=== PATIENT | male | born 1980 | race Caucasian/White ===

== ENCOUNTER → 2022-01-06 | Day surgery (SDC) | payer OTHER ==
[2022-01-02 12:21] VITALS: BMI 23.5
[~2022-01-06] MED LIST: CLINDAMYCIN 900 MG in DEXTROSE 5% IN WATER 50 ML IVPB PRN; GABAPENTIN 100 MG CAP PO STA; MIDAZOLAM 2 MG/2 ML VIAL IVP ONE; SODIUM CHLORIDE 0.9% 1,000 ML IV SCH; fentaNYL (PF) 50 MCG/ML 2 ML AMP ONE
[2022-01-06 13:55] VITALS: RESP 16; TEMP 98.3
--- NOTE | 2022-01-06 14:21 | P.EPPROC ---
- EP Procedure Note Electrophysiology Procedure Note: Loop monitor implant Primary physicians: Alex Dinero Architect Internship: Dr. Granda Indication: Recurrent syncope, history of WPW status post ablation at [facility] Patient was brought to the EP lab in a fasting state. Written informed consent was obtained prior to the procedure. The left pectoral area was prepped and draped per protocol. Intravenous antibiotic was administered preoperatively. A subcutaneous Loop monitor was implanted successfully and the wound was closed p er protocol. The device was programmed to detect significant job- arrhythmic and tachy-arrhythmic events, per protocol. Device and programming details: Syncope protocol Patient underwent EP procedure under conscious sedation/moderate sedation, monitoring of the level of consciousness and physiologic parameters including but not limited to vital signs and oxygenation. Patient tolerated the procedure well without any acute complications. Start time: 1407 Stop time: 1417
[2022-01-06 18:19] VITALS: BP 114/66; PULSE 60
== END ==
LOC: CATHEP 12:35
PROVIDERS: ATTEND Internal Medicine Clinical Cardiac Electrophysiology
DX: R55 Syncope and collapse (principal); I45.6 Pre-excitation syndrome; I48.0 Paroxysmal atrial fibrillation; G40.909 Epilepsy, unspecified, not intractable, without status epilepticus; Z86.73 Personal history of transient ischemic attack (TIA), and cerebral infarction without residual deficits; Z20.822 Contact with and (suspected) exposure to COVID-19; R07.89 Other chest pain; E11.9 Type 2 diabetes mellitus without complications; Z72.0 Tobacco use; Z88.0 Allergy status to penicillin; Z79.82 Long term (current) use of aspirin; Z79.899 Other long term (current) drug therapy
CPT/HCPCS: 33285; 87635; C1764; J2250

== ENCOUNTER → 2024-09-26 | Outpatient (CLI) | payer OTHER ==
--- NOTE | 2024-09-26 16:01 | CT ---
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 FINDINGS: The ventricles, basal cisterns and sulci over convexities are within normal limits and there is no ma ss effect or shift of midline structures. There is a subtle area of decreased density obscuring the cortical white matter junction in the right frontal lobe raising the possibility of acute infarction. MRI would be useful for further evaluation given its greater sensitivity for acute infarct. There is no acute intra or extra-axial hemorrhage. The posterior fossa is unremarkable. The intraorbital contents appear normal and symmetric. There is mild chronic inflammatory change in the left maxillary sinus. The mastoid air cells are well aerated. IMPRESSION: 1. Findings raise the question of possible acute right frontal infarct. MRI would be useful for furth er evaluation. 2. No acute bleed or mass effect. IMPRESSION: [facility], Workstation: CE, 09/26/2024 3:59 PM
--- NOTE | 2024-09-26 16:11 | CT ---
EXAMINATION TYPE: CT angio head neck DATE OF EXAM: 09/26/2024 COMPARISON: None CLINICAL INDICATION: Male, 43 years old with history of G45.9 TIA; PHH, Headache and facial pain, hx CVA TECHNIQUE: CTA scan of the head and neck is performed without and with IV Contrast, patient injected with 65 mL of Isovue 370, axial images are obtained, coronal and sagittal reformatted images are rev iewed. 3D reconstructed images are created on an independent workstation and reviewed. CT DLP: 1609.[address] CTDI: mGy Automated exposure control for dose reduction was used. NASCET criteria was used in interpretation of this exam? FINDINGS: The brachiocephalic origins are widely patent and no significant stenosis. There is no significant stenosis of the common or internal carotid arteries within the neck. There is no stenosis of the vertebral arteries. Intracranially, there is no stenosis, segmental occlusion, sizable aneurysm sac or vascular malformat ion. IMPRESSION:. No significant abnormality seen. NASCET criteria was used in interpretation of this exam? [facility], Workstation: CE 09/26/2024 4:09 PM
== END | disposition home or self-care (01) ==
LOC: RADCTMAIN 14:39
PROVIDERS: ATTEND Psychiatry & Neurology Neurology
DX: G45.9 Transient cerebral ischemic attack, unspecified (principal); Z86.73 Personal history of transient ischemic attack (TIA), and cerebral infarction without residual deficits
CPT/HCPCS: 70496; 70450; 70498; Q9967